=== PATIENT | male | born 1990 | race American Indian/Alaskan Native ===

== ENCOUNTER 2021-07-26 19:38 | Emergency (ER) | payer OTHER ==
[2021-07-26] MEDS ORDERED: IBUPROFEN 800 MG TAB PO ONE (19:55)
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
[2021-07-26 21:45] VITALS: BP 122/86
== END 2021-07-26 21:47 | disposition home or self-care (01) ==
LOC: ED 19:38
DX: S13.4XXA Sprain of ligaments of cervical spine, initial encounter (principal); S39.012A Strain of muscle, fascia and tendon of lower back, initial encounter; V89.2XXA Person injured in unspecified motor-vehicle accident, traffic, initial encounter; Y93.89 Activity, other specified; Y92.488 Other paved roadways as the place of occurrence of the external cause; Y99.8 Other external cause status
CPT/HCPCS: 72040; 72100; 99283

== ENCOUNTER 2021-11-02 16:10 | Emergency (ER) | payer OTHER ==
[2021-11-02] MEDS ORDERED: IBUPROFEN 400 MG TAB PO ONE (17:45)
[2021-11-02] MEDS ORDERED: ACETAMINOPHEN 325 MG TAB PO ONE (17:45)
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
[2021-11-02 18:46] VITALS: BP 138/74
== END 2021-11-02 18:15 | disposition home or self-care (01) ==
LOC: ED 16:10
DX: M54.50 Low back pain, unspecified (principal); V89.2XXA Person injured in unspecified motor-vehicle accident, traffic, initial encounter; Y93.89 Activity, other specified; Y92.89 Other specified places as the place of occurrence of the external cause; Y99.8 Other external cause status
CPT/HCPCS: 99282